=== PATIENT | female | born 1985 | race Caucasian/White ===

== ENCOUNTER 2020-08-30 14:26 | Emergency (ER) | payer MEDICARE ==
[~2020-08-30] VITALS: Ht 180.3 cm; Wt 205.0 kg
[2020-08-30] MEDS ORDERED: PROAIR HFA8.5 GM INH (15:30)
[2020-08-30] MEDS ORDERED: ALBUTEROL2.5 MG/31 INH (15:30)
[2020-08-30] MEDS ORDERED: PREDNISONE 20 M20 MG PO (15:30)
[2020-08-30] MEDS ORDERED: ZPAK PO (15:30)
[2020-08-30 16:00] VITALS: BP 151/100
== END 2020-08-30 16:27 | disposition home or self-care (01) ==
LOC: M.ERS 14:26
DX: U07.1 COVID-19 (principal); R06.00 Dyspnea, unspecified; J45.909 Unspecified asthma, uncomplicated; Z88.1 Allergy status to other antibiotic agents; Z88.0 Allergy status to penicillin; Z88.2 Allergy status to sulfonamides; Z91.012 Allergy to eggs

== ENCOUNTER 2020-09-07 02:41 | Inpatient (IN) | payer MEDICARE ==
[~2020-09-07] VITALS: Ht 180.3 cm; Wt 205.0 kg
[~2020-09-07 02:41] MED LIST: ALBUTEROL2.5 MG/31 INH; PREDNISONE 20 M20 MG PO; PROAIR HFA8.5 GM INH; ZPAK PO
[2020-09-07 02:47] VITALS: BP 159/93
[2020-09-07 03:59] LABS: BE 2.5 mmol/L (-2 to +3); PCO2 33.1 mmHg (35.0-45.0); pH 7.499 (7.340-7.450)
[2020-09-07 04:01] LABS: PO2 55.8 mmHg (75.0-100.0)
[2020-09-07 04:27] LABS: ABSOLUTE MONOCYTES 0.3 thou/uL (0.0-1.2); ABSOLUTE NEUTROPHILS 4.6 thou/uL (1.6-8.1); BASOPHILS 0.7 %; HEMOGLOBIN 12.4 gm/dL (12.0-15.0); MCV 75.1 fL (80.0-100.0); MPV 7.4 fl. (7.2-11.1); NUCLEATED RBCS 0 /100WBC; PLATELET COUNT* 256 thou/uL (150-400); POLYS 77.3 %; RBC 5.19 mil/uL (4.20-5.00); RDW-CV 17.1 % (10.5-14.5)
[2020-09-07 04:42] LABS: CALCIUM 8.3 mg/dL (8.5-10.1); CREATININE 0.8 mg/dL (0.6-1.3); POTASSIUM 3.8 mmol/L (3.5-5.1)
[2020-09-07 04:46] LABS: ALBUMIN 2.8 g/dL (3.4-5.0); TOTAL BILIRUBIN 0.4 mg/dL (<0.1-1.0); TOTAL PROTEIN 7.4 g/dL (6.4-8.2)
[2020-09-07 05:10] VITALS: BP 118/72
[2020-09-07 05:20] VITALS: BP 129/87
[2020-09-07 08:00] VITALS: BP 132/75
[2020-09-07 13:02] VITALS: BP 132/81
[2020-09-07 18:25] VITALS: BP 129/70
[2020-09-08 00:08] VITALS: BP 127/66
[2020-09-08 03:53] VITALS: BP 139/70
[2020-09-08 08:00] VITALS: BP 119/63
[2020-09-08 12:39] VITALS: BP 124/76
[2020-09-08 16:00] VITALS: BP 124/71
[2020-09-08 20:00] VITALS: BP 123/76
[2020-09-09 01:27] VITALS: BP 124/76
[2020-09-09 05:17] LABS: HEMOGLOBIN 11.7 gm/dL (12.0-15.0); MCH 23.8 pg (26.0-34.0); MCHC 31.5 g/dL (28.0-37.0); MCV 75.5 fL (80.0-100.0); MPV 7.2 fl. (7.2-11.1); RBC 4.9 mil/uL (4.20-5.00); RDW-CV 17.7 % (10.5-14.5); WBC 3.9 thou/uL (4.0-11.0)
[2020-09-09 05:24] VITALS: BP 132/81
[2020-09-09 05:36] LABS: ALBUMIN 2.6 g/dL (3.4-5.0); CALCIUM 8.5 mg/dL (8.5-10.1); CREATININE 0.5 mg/dL (0.6-1.3); MAGNESIUM 2.3 mg/dL (1.8-2.4); POTASSIUM 3.9 mmol/L (3.5-5.1); TOTAL BILIRUBIN 0.1 mg/dL (<0.1-1.0); TOTAL PROTEIN 6.8 g/dL (6.4-8.2)
[2020-09-09 08:00] VITALS: BP 130/80
[2020-09-09 11:58] VITALS: BP 135/80
--- NOTE | 2020-09-09 15:32 | 2DMMODE ---
[place] [address] 2 D/M-MODE ECHOCARDIOGRAM Name: SAVANNADARON Room: [address] IN .R.#: [id number] Admission: 09/07/20 Attend Phys: Nabil Iqbal, Discharge: Date of : 89 Date of Service: 09/09/20 1531 Report #: [id number] THIS REPORT FOR: cc: FAM - No family physician/PCP FAM - No family physician/PCP Elia Torres MD [facility] ~ APPROVED REPORT Study performed: 09/09/2020 13:45:32 EXAM: Comprehensive 2D, Doppler, and color-flow Echocardiogram Patient Location: In-Patient Room #: [facility] Status: routine BSA: 2.98 HR: 78 bpm BP: 135/80 mmHg Rhythm: NSR Other Information Study Quality: Good Indications Atrial Fibrillation 2D Dimensions IVSd: 11.67 (7-11mm) LVOT Diam: 23.18 (18-24mm) LVDd: 51.72 mm PWd: 11.31 (7-11mm) Ascending Ao: 30.17 (22-36mm) LVDs: 32.73 (25-40mm) Aortic Root: 33.15 mm Volumes Left Atrial Volume (Systole) LA ESV Index: 21.80 mL/m2 Aortic Valve AoV Peak Massimo.: 1.34 m/s AO Peak Gr.: 7.16 mmHg LVOT Max P.29 mmHg AO Mean Gr.: 3.96 mmHg LVOT Mean P.86 mmHg LVOT Max V: 0.91 m/s AO V2 VTI: 24.24 cm LVOT Mean V: 0.64 m/s MERT (VTI): 3.42 cm2 LVOT V1 VTI: 19.67 [place] [address] 2 D/M-MODE ECHOCARDIOGRAM Name: DARON CORRALES Room: [address]#: [id number] Admission: 09/07/20 Attend Phys: Nabil Iqbal, Discharge: Date of : 89 Date of Service: 09/09/20 1531 Report #: [id number] Mitral Valve E/A Ratio: 1.59 MV Decel. Time: 200.89 ms MV E Max Massimo.: 1.11 m/s MV PHT: 58.26 ms MVA (PHT): 3.78 cm2 TDI E/Lateral E': 8.54 E/Medial E': 9.25 Medial E' Massimo.: 0.12 m/s Lateral E' Massimo.: 0.13 m/s Pulmonary Valve PV Peak Massimo.: 0.86 m/s PV Peak Gr.: 2.99 mmHg Left Ventricle The left ventricle is normal size. There is normal LV segmental wall motion. There is normal left ventricular wall thickness. Left ventricular systolic function is normal. The left ventricular ejection fraction is within the normal range. LVEF is 55-60%. The left ventricular diastolic function is normal. Right Ventricle The right ventricle is normal size. The right ventricular systolic function is normal. Atria The left atrium size is normal. The right atrium size is normal. Aortic Valve The aortic valve is normal in structure. No aortic regurgitation is present. There is no aortic valvular stenosis. Mitral Valve The mitral valve is normal in structure. There is no mitral valve regurgitation noted. No evidence of mitral valve stenosis. Tricuspid Valve The tricuspid valve is normal in structure. Trace tricuspid regurgitation. Unable to assess PA pressure. Pulmonic Valve The pulmonary valve is normal in structure. There is no pulmonic [place] [address] 2 D/M-MODE ECHOCARDIOGRAM Name: DARON CORRALES [place] Room: [address]#: [id number] Admission: 09/07/20 Attend Phys: Nabil Iqbal, Discharge: Date of : 89 Date of Service: 09/09/20 1531 Report #: [id number] Great Vessels The aortic root is normal in size. IVC is normal in size and collapses >50% with inspiration. Pericardium There is no pericardial effusion. <Conclusion> The left ventricle is normal size. There is normal left ventricular wall thickness. Left ventricular systolic function is normal. The left ventricular ejection fraction is within the normal range. LVEF is 55-60%. The left ventricular diastolic function is normal. The right ventricle is normal size. The left atrium size is normal. The aortic valve is normal in structure. The mitral valve is normal in structure. The tricuspid valve is normal in structure. IVC is normal in size and collapses >50% with inspiration. There is no pericardial effusion. There is normal LV segmental wall motion. <ELECTRONICALLY SIGNED> By: Elia Torres MD, FACC 09/09/20 1531 [id number] 153 Elia Torres MD, FACC /INF
[2020-09-09 16:03] VITALS: BP 132/76
--- NOTE | 2020-09-09 18:37 | EKG ---
[place] [address] ELECTROCARDIOGRAM REPORT Name: DARON CORRALES Room: [address] IN .R.#: [id number] Admission: 09/07/20 Attend Phys: Nabil Iqbal, Discharge: Date of : 89 Date of Service: 09/09/20 1440 Report #: [id number] THIS REPORT FOR: //name// 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
[2020-09-09 19:45] VITALS: BP 120/78
[2020-09-09 21:03] LABS: URINE BILIRUBIN NEGATIVE (Negative); URINE BLOOD NEGATIVE (Negative); URINE CLARITY CLEAR; URINE COLOR YELLOW; URINE GLUCOSE-RANDOM 1+ (Negative); URINE KETONES NEGATIVE (Negative); URINE LEUKOCYTES-REFLEX NEGATIVE (Negative); URINE PROTEIN NEGATIVE (Negative); URINE SPECIFIC GRAVITY 1.025 (1.005-1.030)
[2020-09-09 21:06] LABS: URINE NITRITE-REFLEX POSITIVE (Negative)
[2020-09-09 21:15] LABS: SQUAMOUS >10 Many /LPF (0-3)
[2020-09-09 21:16] LABS: BACTERIA-REFLEX >30 Many /HPF (None Seen); MUCUS None Seen strn/LPF (None Seen)
[2020-09-09 21:18] LABS: CASTS None Seen /LPF (None Seen); CRYSTALS None Seen /LPF (None Seen); URINE RBC None Seen /HPF (0-2); URINE WBC-REFLEX 0-5 Rare /HPF (0-5)
[2020-09-10 00:38] VITALS: BP 144/72
[2020-09-10 04:30] VITALS: BP 133/69
[2020-09-10 07:35] VITALS: BP 136/86
[2020-09-10 12:10] VITALS: BP 119/78
[2020-09-10 17:00] VITALS: BP 141/64
[2020-09-10 20:00] VITALS: BP 125/88
[2020-09-11] VITALS (8 sets, daily range): BP systolic 116–140; BP diastolic 70–77
[2020-09-11] MEDS ORDERED: ZINC SULFATE 2220 MG PO (10:47)
[2020-09-11] MEDS ORDERED: FLECAINIDE ACET50 M1 PO (10:47)
[2020-09-11] MEDS ORDERED: DEXAMETHASONE 22 M1 PO (10:47)
[2020-09-11] MEDS ORDERED: VITAMINC500 PO (10:47)
[2020-09-11] MEDS ORDERED: XARELTO20 MG PO (10:47)
== END 2020-09-11 15:58 | disposition home or self-care (01) | DRG 177 ==
LOC: M.ERS 02:41 → M.ORTHSURG 04:31 → M.TBA-ER 04:31 → M.ORTHSURG 05:04
PROVIDERS: Internal Medicine; Personal Emergency Response Attendant; ADMIT Internal Medicine; ATTEND Internal Medicine
PROC: XW033E5 Introduction of Remdesivir Anti-infective into Peripheral Vein, Percutaneous Approach, New Technology Group 5 (ICD-10-PCS; principal; 2020-09-07)
PROC: 5A0935A Assistance with Respiratory Ventilation, Less than 24 Consecutive Hours, High Flow/Velocity Cannula (ICD-10-PCS; 2020-09-09)
DX: U07.1 COVID-19 (principal); J96.01 Acute respiratory failure with hypoxia; J12.82 Pneumonia due to coronavirus disease 2019; D68.59 Other primary thrombophilia; Z68.44 Body mass index [BMI] 60.0-69.9, adult; E66.01 Morbid (severe) obesity due to excess calories; J45.909 Unspecified asthma, uncomplicated; Z20.822 Contact with and (suspected) exposure to COVID-19; I48.0 Paroxysmal atrial fibrillation; Z88.0 Allergy status to penicillin; Z88.2 Allergy status to sulfonamides; Z88.8 Allergy status to other drugs, medicaments and biological substances; Z88.1 Allergy status to other antibiotic agents; Z91.012 Allergy to eggs; Z79.899 Other long term (current) drug therapy

== ENCOUNTER → 2020-11-07 | Outpatient (CLI) | payer MEDICARE ==
[~2020-11-07] MED LIST changes: +DEXAMETHASONE 22 M1 PO; +FLECAINIDE ACET50 M1 PO; +VITAMINC500 PO; +XARELTO20 MG PO; +ZINC SULFATE 2220 MG PO
[2020-11-07 15:49] LABS: HEMOGLOBIN 11.6 gm/dL (12.0-15.0); MCH 25.4 pg (26.0-34.0); MCHC 32.1 g/dL (28.0-37.0); MPV 6.8 fl. (7.2-11.1); RBC 4.55 mil/uL (4.20-5.00); RDW-CV 19.1 % (10.5-14.5); WBC 10.1 thou/uL (4.0-11.0)
[2020-11-07 16:04] LABS: ALBUMIN 3.3 g/dL (3.4-5.0); CREATININE 0.6 mg/dL (0.6-1.3); POTASSIUM 3.8 mmol/L (3.5-5.1); TOTAL BILIRUBIN 0.3 mg/dL (<0.1-1.0); TOTAL PROTEIN 8.2 g/dL (6.4-8.2)
[2020-11-07 22:06] LABS: GLYCOHEMOGLOBIN (HGB A1C) 6.3 % (4.8-5.6)
== END ==
LOC: M.LAB 15:04
PROVIDERS: ATTEND Registered Nurse
DX: R60.0 Localized edema (principal); R73.9 Hyperglycemia, unspecified; R73.01 Impaired fasting glucose; Z79.899 Other long term (current) drug therapy